=== PATIENT | female | born 1955 | race Caucasian/White ===

== ENCOUNTER → 2024-03-11 12:28 | Outpatient (REF) | payer MEDICARE, SELFPAY | LOC: HWWDC 12:28 | PROVIDERS: ATTENDING PHYSICIAN Obstetrics & Gynecology; FAMILY PHYSICIAN Family Medicine Geriatric Medicine | DX: Z12.31 Encounter for screening mammogram for malignant neoplasm of breast (principal) | CPT/HCPCS: 77063; 77067 ==

== ENCOUNTER → 2025-03-18 10:03 | Outpatient (REF) | payer OTHER, SELFPAY | LOC: HWWDC 10:03 | PROVIDERS: ATTENDING PHYSICIAN Obstetrics & Gynecology; FAMILY PHYSICIAN Family Medicine Geriatric Medicine | DX: Z12.31 Encounter for screening mammogram for malignant neoplasm of breast (principal) | CPT/HCPCS: 77063; 77067 ==